=== PATIENT | male | born 1950 | race Caucasian/White ===

== ENCOUNTER 2018-06-16 12:47 | Emergency (ER) | payer OTHER, MEDICARE ==
[2018-06-16] MEDS ORDERED: NORMAL SALINE 1000 ML 1,000 ML IV ONE (12:59)
[2018-06-16 13:09] LABS: ABSOLUTE BASOPHILS # (AUTO) 0.1 10^3/uL (0.0-0.2); ABSOLUTE EOSINOPHILS # (AUTO) 0.2 10^3/uL (0.0-0.6); ABSOLUTE LYMPHOCYTES (AUTO) 1.7 10^3/uL (0.5-4.7); ABSOLUTE MONOCYTES (AUTO) 0.6 10^3/uL (0.1-1.4); ABSOLUTE NEUT (AUTO) 4.8 10^3/uL (1.7-8.2); BASOPHILS % (AUTO) 1.4 % (0-2); EOSINOPHILS % (AUTO) 2.4 % (0-6); HEMATOCRIT 39.5 % (37.9-51.0); HEMOGLOBIN 13.7 g/dL (13.5-17.0); LYMPHOCYTES % (AUTO) 23.7 % (13-45); MEAN CORPUSCULAR HEMOGLOBIN 30.5 pg (27.0-33.4); MEAN CORPUSCULAR HGB CONC 34.5 g/dL (32.0-36.0); MEAN CORPUSCULAR VOLUME 88 fl (80-97); PLATELET COUNT 318 10^3/uL (150-450); RED BLOOD COUNT 4.47 10^6/uL (4.35-5.55); RED CELL DISTRIBUTION WIDTH 12.8 % (11.5-14.0); SEGMENTED NEUTROPHILS % (AUTO) 64.5 % (42-78); TOTAL CELLS COUNTED % (AUTO) 100 %; WHITE BLOOD COUNT 7.4 10^3/uL (4.0-10.5)
[2018-06-16 13:43] LABS: BLOOD UREA NITROGEN 13 mg/dL (7-20); CALCIUM 9.9 mg/dL (8.4-10.2); GLUCOSE 109 mg/dL (75-110)
[2018-06-16 13:44] LABS: ALANINE AMINOTRANSFERASE 18 U/L (21-72); ALBUMIN 4.4 g/dL (3.5-5.0); ALKALINE PHOSPHATASE 77 U/L (38-126); ANION GAP 10 (5-19); ASPARTATE AMINO TRANSFERASE 21 U/L (17-59); BILIRUBIN,DIRECT 0.1 mg/dL (0.0-0.4); BILIRUBIN,TOTAL 0.9 mg/dL (0.2-1.3); CARBON DIOXIDE 30 mmol/L (22-30); CHLORIDE 102 mmol/L (98-107); POTASSIUM 3.8 mmol/L (3.6-5.0); SODIUM 141.9 mmol/L (137-145); TOTAL PROTEIN 7.2 g/dL (6.3-8.2)
--- NOTE | 2018-06-16 14:37 | ER Document Report ---
ED General - General Chief Complaint: Near Syncope Stated Complaint: DIZZINESS/WEAKNESS Time Seen by Provider: 06/16/18 13:35 Primary Care Provider: JULIO CÉSAR NAVARRO MD [Primary Care Provider] - Follow up as needed TRAVEL OUTSIDE OF THE [place] IN LAST 30 DAYS: No - HPI Notes: Patient presents to the emergency department for evaluation. He reports an episode of near syncope. This is not a new problem for him. He states this happens multiple times, he is actually had increasing in frequency of the symptoms. He self diagnosed himself as having POTS syndrome. [facility] He states that his symptoms lasted slightly longer than normal today so he came into the emergency department for evaluation. He states he has been eating and drinking normally. No recent change area no recent fevers or cough, he denies any chest pain or shortness of breath. He did have total shoulder replacement performed last month. He denies any chest pain or difficulty breathing. At the time of my evaluation he is feeling nearly asymptomatic, he states he feels just slightly weak. This is nonfocal per the patient. - Related Data Allergies/Adverse Reactions: No Known Drug Allergies Allergy (Verified 12/28/11 11:49) Past Medical History - General Information source: Patient - Social History Smoking Status: Unknown if Ever Smoked Family History: Reviewed & Not Pertinent Patient has suicidal ideation: No Patient has homicidal ideation: No Renal/ Medical History: Denies: Hx Peritoneal Dialysis Past Surgical History: Reports: Hx Orthopedic Surgery - back surgery - Immunizations Hx Diphtheria, Pertussis, Tetanus Vaccination: Yes Hx Pneumococcal Vaccination: 12/28/11 Review of Systems - Review of Systems Constitutional: Weakness EENT: No symptoms reported Cardiovascular: No symptoms reported Respiratory: No symptoms reported Gastrointestinal: No symptoms reported Musculoskeletal: No symptoms reported Skin: No symptoms reported Neurological/Psychological: See HPI Physical Exam - Vital signs Vitals: Temp Pulse Resp BP Pulse Ox 97.3 F 54 L 16 92/58 L 100 06/16/18 12:54 06/16/18 12:54 06/16/18 12:54 06/16/18 12:54 06/16/18 12:54 Notes: Borderline hypotensive, mild bradycardia, otherwise unremarkable and as charted - Notes Notes: Vital signs reviewed, please refer to chart. Patient is normocephalic, atraumatic. Pupils equal round, reactive to light. Neck is supple without meningismus. Heart is regular rate and rhythm. Lungs are clear to auscultation bilaterally. Abdomen is soft, nontender, normoactive bowel sounds throughout. Extremities without cyanosis, clubbing, edema. Peripheral pulses are equal. Skin is warm and dry. Patient is awake, alert, oriented x3. Cranial nerves II through XII grossly intact without focal neurological deficits. Strength is plus 5 out of 5 bilateral upper and lower extremities. Sensation is intact, intact finger nose finger, rapid elevating movements, heel to arreola. Reflexes are symmetrical. Course - Re-evaluation Re-evalutation: 06/16/18 14:35 Patient presents to the emergency department for evaluation. He has had near syncopal episodes like this multiple times. He states they seem to be coming more frequently. He denies any pain. No chest pain or difficulty breathing. He states he feels close to baseline, just slightly weak. After minimal fluids here his blood pressure is normalized. He states he feels stable enough for discharge. He states his primary care physician is currently working up these episodes. He understands that if he has any worsening or new concerning symptoms of any sort, he needs to return immediately to the emergency department for evaluation. - Vital Signs Vital signs: Temp Pulse Resp BP Pulse Ox 97.3 F 54 L 12 96/54 L 97 06/16/18 12:54 06/16/18 12:54 06/16/18 14:01 06/16/18 14:01 06/16/18 14:01 - Laboratory Result Diagrams: 06/16/18 12:25 06/16/18 12:25 Laboratory results interpreted by me: 06/16/18 12:25 ALT 18 L - EKG Interpretation by Me Additional EKG results interpreted by me: 06/16/18 14:36 Sinus bradycardia with a rate of 50 bpm. Left axis deviation. No acute ST changes concerning for ischemia or infarction. Discharge - Discharge Clinical Impression: Weakness, Hypotension Condition: Stable Disposition: HOME, SELF-CARE Instructions: Weakness ([facility] [place]) Additional Instructions: Your blood pressure normalized here today. Follow-up with your primary care physician this week. Stay well-hydrated. If you develop chest pain, difficulty breathing, or any other new or concerning symptoms, return immediately to the emergency department for reevaluation. Referrals: JULIO CÉSAR NAVARRO MD [Primary Care Provider] - Follow up as needed
[2018-06-16 14:40] VITALS: BP 102/55
--- NOTE | 2018-06-18 10:17 | EKG REPORT ---
SEVERITY:- OTHERWISE NORMAL ECG - SINUS RHYTHM LEFT AXIS DEVIATION : Confirmed by: Liz Gonzales 18-Jun-2018 10:16:46
== END 2018-06-16 14:46 | disposition home or self-care (01) ==
LOC: ER 12:47
DX: R53.1 Weakness (principal); I95.9 Hypotension, unspecified; R55 Syncope and collapse; R42 Dizziness and giddiness
CPT/HCPCS: 93005; 99284; 96360; 36415; 85025; 80053; 84484; 93010; J7030

== ENCOUNTER → 2019-05-11 | Outpatient (CLI) | payer OTHER ==
--- NOTE | 2019-05-11 12:03 | RADIOLOGY REPORT (SQ) ---
EXAM DESCRIPTION: SKULL 1-3 VIEWS COMPLETED DATE/TIME: 05/11/2019 11:51 am REASON FOR STUDY: Foreign body eval COMPARISON: None. NUMBER OF VIEWS: Two Views. TECHNIQUE: PA, Cydney's, right and left lateral views. LIMITATIONS: None. FINDINGS: SKULL: Sutures are normal. No skull fractures. OTHER: No other significant finding. IMPRESSION: NO OCCULT FRACTURES. NO RADIOPAQUE FOREIGN BODY. TECHNICAL DOCUMENTATION: JOB ID: [id number] [employer]- All Rights Reserved Reading location - IP/workstation name: [email or web address]
--- NOTE | 2019-05-11 15:08 | RADIOLOGY REPORT (SQ) ---
EXAM DESCRIPTION: MRI BREAST BILATERAL W/WO COMPLETED DATE/TIME: 05/11/2019 12:59 pm REASON FOR STUDY: RIGHT BREAST MASS COMPARISON: None. PATHOLOGIC CORRELATION: None. CONTRAST TYPE AND DOSE: 20 mL Dotarem. RENAL FUNCTION: GFR > 60. TECHNIQUE: MR imaging performed with a dedicated breast coil. Pre contrast T1 and T2 weighted images . Pre contrast and post contrast enhanced T1 weighted images with fat saturation. Subtraction images, 3D thick and thin MIPS, and kinetic analysis performed on an independent workstat ion. ([employer] workstation) Magnet strength: 1.5 T LIMITATIONS: None. FINDINGS: BREAST DENSITY: a. The breasts are almost entirely fatty. BACKGROUND PARENCHYMAL ENHANCEMENT:None. RIGHT BREAST: No enhancing or suspicious masses. Mild right retroareolar gynecomastia. No clumped, regional/segmental ductal enhancement. CHEST WALL: Normal tissue planes. No abnormal internal mammary nodes. Patient has a marker along the right infraclavicular region anterior upper chest. Deep to the marker, a 2 x 1 cm lipoma is present . No worrisome features AXILLA: Normal axillary and retro-pectoral nodes. LEFT BREAST:No enhancing or suspicious masses. Mild left retroareolar gynecomastia No clumped, regio nal/segmental ductal enhancement. CHEST WALL: Normal tissue planes. No abnormal internal mammary nodes. AXILLA: Normal axillary and retro-pectoral nodes. OTHER:No identified liver, bone, or lung lesions. Artifact from hardware right shoulder. IMPRESSION: Bilateral gynecomastia In the area of palpable abnormality indicated by the patient, a 2 x 1 cm fat signal lipoma is present in the subcutaneous fat. BIRAD: RIGHT BREAST: 2 Benign findings. LEFT BREAST: 2 Benign findings. RECOMMENDATION: RECOMMENDED FOLLOW-UP: Clinical followup for bilateral gynecomastia and right chest wall lipoma TECHNICAL DOCUMENTATION: JOB ID: [id number] [employer]- All Rights Reserved Reading location - IP/workstation name: [email or web address]
== END ==
LOC: RAD 11:20
PROVIDERS: ATTEND Physician Assistant
DX: N62 Hypertrophy of breast (principal)
CPT/HCPCS: 82565; 77049; 70250; A9576